=== PATIENT | male | born 1940 | race Caucasian/White ===

== ENCOUNTER 2017-03-12 20:33 | Emergency (ER) | payer MEDICARE ==
[~2017-03-12 20:33] MED LIST: CLOBETASOL0.051 EX; ZESTORETIC PO
== END 2017-03-12 20:55 | disposition home or self-care (01) ==
LOC: ER 20:33
DX: S61.201A Unspecified open wound of left index finger without damage to nail, initial encounter (principal); I10 Essential (primary) hypertension; W26.0XXA Contact with knife, initial encounter; Z79.899 Other long term (current) drug therapy
CPT/HCPCS: 90471; 90714; 99283